=== PATIENT | male | born 1935 | race Caucasian/White ===

== ENCOUNTER → 2019-04-13 13:13 | Outpatient (CLI) | payer OTHER | END | disposition home or self-care (01) | LOC: LAB 13:13 | DX: R97.20 Elevated prostate specific antigen [PSA] (principal) ==

== ENCOUNTER 2019-04-23 15:01 | Outpatient (CLI) | payer OTHER | END 2019-04-23 15:09 | disposition home or self-care (01) | LOC: LAB 15:01 | DX: R97.20 Elevated prostate specific antigen [PSA] (principal) ==

== ENCOUNTER 2020-11-15 15:44 | Emergency (ER) | payer OTHER ==
[~2020-11-15] VITALS: Ht 182.9 cm; Wt 88.5 kg
[2020-11-15] MEDS ORDERED: ZYTIGA250 MG (16:34)
[2020-11-15] MEDS ORDERED: RAYOS5 MG (16:34)
[2020-11-15] MEDS ORDERED: SYNTHROID175 MCG (16:34)
[2020-11-15] MEDS ORDERED: ADULT LOW DOSE81 M1 (16:35)
[2020-11-15] MEDS ORDERED: ROCALTROL0.25 MCG (16:35)
[2020-11-15] MEDS ORDERED: LASIX40 MG (16:35)
[2020-11-15] MEDS ORDERED: VITAMIN B122500 MCG (16:35)
[2020-11-15] MEDS ORDERED: VITAMIN C500 M5 (16:35)
== END 2020-11-15 18:26 | disposition home or self-care (01) ==
LOC: ER 15:44
DX: S50.812A Abrasion of left forearm, initial encounter (principal); W54.8XXA Other contact with dog, initial encounter; Y93.89 Activity, other specified; Y92.018 Other place in single-family (private) house as the place of occurrence of the external cause; Y99.8 Other external cause status

== ENCOUNTER 2020-12-03 09:14 | Emergency (ER) | payer OTHER ==
[~2020-12-03] VITALS: Ht 182.9 cm; Wt 87.5 kg
[~2020-12-03 09:14] MED LIST: ADULT LOW DOSE81 M1; LASIX40 MG; RAYOS5 MG; ROCALTROL0.25 MCG; SYNTHROID175 MCG; VITAMIN B122500 MCG; VITAMIN C500 M5; ZYTIGA250 MG
[2020-12-03] MEDS ORDERED: SINGULAIR10 MG (09:59)
[2020-12-03] MEDS ORDERED: LASIX20 MG PO (17:06)
== END 2020-12-03 17:44 | disposition home or self-care (01) ==
LOC: ER 09:14
DX: R60.0 Localized edema (principal); R06.02 Shortness of breath; Z03.818 Encounter for observation for suspected exposure to other biological agents ruled out

== ENCOUNTER 2020-12-15 15:00 | Inpatient (IN) | payer OTHER ==
[~2020-12-15] VITALS: Ht 182.9 cm; Wt 81.6 kg
[~2020-12-15 15:00] MED LIST changes: +LASIX20 MG PO; +SINGULAIR10 MG
[2020-12-15] MEDS ORDERED: ZAROXOLYN2.5 MG (15:40)
[2020-12-23] MEDS ORDERED: KLOR-CON M1010 MEQ PO (14:09)
[2020-12-23] MEDS ORDERED: DILTIAZEM HCL30 MG PO (14:10)
== END 2020-12-23 15:37 | disposition home or self-care (01) | DRG 641 ==
LOC: ER 15:00 → MEDI 12-16 09:30
PROVIDERS: ADMIT Internal Medicine; ATTEND Internal Medicine
PROC: 4A12X4Z Monitoring of Cardiac Electrical Activity, External Approach (ICD-10-PCS; 2020-12-16)
PROC: 3E0F7SF Introduction of Other Gas into Respiratory Tract, Via Natural or Artificial Opening (ICD-10-PCS; 2020-12-16)
PROC: 02HV33Z Insertion of Infusion Device into Superior Vena Cava, Percutaneous Approach (ICD-10-PCS; 2020-12-17)
PROC: CB121ZZ Planar Nuclear Medicine Imaging of Lungs and Bronchi using Technetium 99m (Tc-99m) (ICD-10-PCS; 2020-12-17)
PROC: B24BYZZ Ultrasonography of Heart with Aorta using Other Contrast (ICD-10-PCS; 2020-12-17)
PROC: 30243N1 Transfusion of Nonautologous Red Blood Cells into Central Vein, Percutaneous Approach (ICD-10-PCS; principal; 2020-12-20)
PROC: BW24ZZZ Computerized Tomography (CT Scan) of Chest and Abdomen (ICD-10-PCS; 2020-12-21)
PROC: B54DZZZ Ultrasonography of Bilateral Lower Extremity Veins (ICD-10-PCS; 2020-12-21)
DX: E87.6 Hypokalemia (principal); C79.9 Secondary malignant neoplasm of unspecified site; I13.0 Hypertensive heart and chronic kidney disease with heart failure and stage 1 through stage 4 chronic kidney disease, or unspecified chronic kidney disease; C61 Malignant neoplasm of prostate; D63.0 Anemia in neoplastic disease; I48.91 Unspecified atrial fibrillation; E03.9 Hypothyroidism, unspecified; N18.30 Chronic kidney disease, stage 3 unspecified; I50.9 Heart failure, unspecified; I25.10 Atherosclerotic heart disease of native coronary artery without angina pectoris; J43.9 Emphysema, unspecified; Z20.822 Contact with and (suspected) exposure to COVID-19

== ENCOUNTER → 2021-01-01 09:24 | Outpatient (CLI) | payer OTHER ==
[~2021-01-01 09:24] MED LIST changes: +DILTIAZEM HCL30 MG PO; +KLOR-CON M1010 MEQ PO; +ZAROXOLYN2.5 MG
== END | disposition home or self-care (01) ==
LOC: LAB 09:24
DX: C61 Malignant neoplasm of prostate (principal); E87.6 Hypokalemia; I50.9 Heart failure, unspecified; E03.9 Hypothyroidism, unspecified; D64.9 Anemia, unspecified

== ENCOUNTER → 2021-02-02 12:18 | Outpatient (CLI) | payer OTHER | END | disposition home or self-care (01) | LOC: LAB 12:18 | DX: C61 Malignant neoplasm of prostate (principal); E83.30 Disorder of phosphorus metabolism, unspecified; E83.40 Disorders of magnesium metabolism, unspecified; E03.8 Other specified hypothyroidism ==